=== PATIENT | male | born 1950 ===

== ENCOUNTER 2021-07-20 12:18 | Outpatient (CLI) | payer OTHER | END 2021-07-20 12:20 | disposition home or self-care (01) | LOC: MRI 12:18 | PROVIDERS: ATTEND Orthopaedic Surgery | DX: M25.561 Pain in right knee (principal); M25.562 Pain in left knee; S83.200A Bucket-handle tear of unspecified meniscus, current injury, right knee, initial encounter | CPT/HCPCS: 73718 ==

== ENCOUNTER 2023-04-14 12:04 | Outpatient (CLI) | payer OTHER | END 2023-04-14 12:08 | disposition home or self-care (01) | LOC: RAD 12:04 | DX: Z01.818 Encounter for other preprocedural examination (principal) ==